=== PATIENT | female | born 1950 | race American Indian/Alaskan Native ===

== ENCOUNTER 2018-08-22 14:06 | Emergency (ER) | payer MEDICAID, MEDICARE ==
[2018-08-22 14:15] VITALS: BP 132/76; PULSE 94; RESP 18; TEMP 98.8; O2SAT 100
[2018-08-22] MEDS ORDERED: Lidocaine 5% Patch TD STA (14:33)
[2018-08-22] MEDS ORDERED: Lidocaine 5% Patch TD ONE (14:39)
--- NOTE | 2018-08-22 15:01 | C.PDOC ---
Chief Complaint (Nursing): Lower Extremity Problem/Injury Past Medical History Vital Signs: Last Vital Signs Temp 98.8 F 08/22/18 14:13 Pulse 94 H 08/22/18 14:13 Resp 18 08/22/18 14:13 BP 132/76 08/22/18 14:13 Pulse Ox 100 08/22/18 14:13 Primary Care Provider: Bibi Mathis - Medical History PMH: Arthritis - Social History Hx Alcohol Use: No Hx Substance Use: No ED Course And Treatment O2 Sat by Pulse Oximetry: 100 Disposition Counseled Patient/Family Regarding: Diagnosis, Need For Followup, Rx Given - Disposition Referrals: Orthopedic Clinic at [Outside] Emi Finley MD [Staff Provider] - Blue Larsen MD [Staff Provider] - Disposition: HOME/ ROUTINE Disposition Time: 14:59 Condition: STABLE Additional Instructions: Continue Naproxen as needed for pain Lidoderm as needed for pain Follow up with ORTHO to discuss surgery Return to ED if symptoms worsen Prescriptions: Naproxen [Naprosyn] 500 mg PO BID #30 tablet Instructions: Osteoarthritis (DC) - Clinical Impression Clinical Impression: Right knee pain, Osteoarthritis
--- NOTE | 2018-08-22 15:03 | C.PDOC ---
History Of Present Illness 68 y/o female, with history of osteoarthritis, presents to ED complaining of right knee pain. States that the pain has been getting worse for the past few days. Patient is currently on oxycodone for pain and was told in the past that she would need surgery. Patient is here requesting knee brace. She denies recent trauma, radiation of pain, numbness or tingling. Chief Complaint (Nursing): Lower Extremity Problem/Injury History Per: Patient History/Exam Limitations: no limitations Onset/Duration Of Symptoms: Days Current Symptoms Are (Timing): Still Present Past Medical History Reviewed: Historical Data, Nursing Documentation, Vital Signs Vital Signs: Last Vital Signs Temp 98.8 F 08/22/18 14:13 Pulse 94 H 08/22/18 14:13 Resp 18 08/22/18 14:13 BP 132/76 08/22/18 14:13 Pulse Ox 100 08/22/18 14:13 Primary Care Provider: Bibi Mathis Medical History PMH: Arthritis Family History: States: No Known Family Hx - Social History Hx Alcohol Use: No Hx Substance Use: No Review Of Systems Constitutional: Negative for: Fever, Chills Cardiovascular: Negative for: Chest Pain Respiratory: Negative for: Shortness of Breath Musculoskeletal: Positive for: Other (right knee pain). Negative for: Back Pain Skin: Negative for: Rash, Bruising Neurological: Negative for: Weakness, Numbness, Headache, Dizziness Physical Exam - Physical Exam Appears: Non-toxic, No Acute Distress Skin: Normal Color, Warm, Dry Head: Atraumatic, Normacephalic Eye(s): bilateral: Normal Inspection Oral Mucosa: Moist Neck: Normal ROM, Supple Chest: Symmetrical Cardiovascular: Rhythm Regular Respiratory: Normal Breath Sounds, No Wheezing Gastrointestinal/Abdominal: Soft, No Tenderness Extremity: Normal ROM (Full ROM of the knee joint), Tenderness (slight tenderness to palpation of the knee joint), No Pedal Edema, No Calf Tenderness, Capillary Refill (less than 2 seconds), Other (no edema, ecchymosis, or erythema) Extremity: Bilateral: Atraumatic, Normal Color And Temperature Pulses: Left Dorsalis Pedis: Normal, Right Dorsalis Pedis: Normal Neurological/Psych: Oriented x3, Normal Speech, Normal Cognition, Normal Motor, Normal Sensation Gait: With Assistance (cane) ED Course And Treatment O2 Sat by Pulse Oximetry: 100 (RA) Pulse Ox Interpretation: Normal Medical Decision Making Medical Decision Making: Plan: --Lidoderm patch placed on knee and knee brace applied --patient stable for discharge Disposition Counseled Patient/Family Regarding: Diagnosis, Need For Followup, Rx Given - Disposition Referrals: Orthopedic Clinic at [Outside] Emi Finley MD [Staff Provider] - Blue Larsen MD [Staff Provider] - Disposition: HOME/ ROUTINE Disposition Time: 15:00 Condition: STABLE Additional Instructions: Continue Naproxen as needed for pain Lidoderm as needed for pain Follow up with ORTHO to discuss surgery Return to ED if symptoms worsen Prescriptions: Naproxen [Naprosyn] 500 mg PO BID #30 tablet Instructions: Osteoarthritis (DC) Forms: [employer] (Yakut) - Clinical Impression Clinical Impression: Right knee pain, Osteoarthritis - PA / SPECIAL EDUCATION PROFESSIONAL / Resident Statement MD/DO has reviewed & agrees with the documentation as recorded. - Scribe Statement The provider has reviewed the documentation as recorded by the Slavaibravinder Jean All medical record entries made by the Slavaibravinder were at my direction and personally dictated by me. I have reviewed the chart and agree that the record accurately reflects my personal performance of the history, physical exam, medical decision making, and the department course for this patient. I have also personally directed, reviewed, and agree with the discharge instructions and disposition.
== END 2018-08-22 15:05 | disposition home or self-care (01) ==
LOC: C.ER 14:06
DX: M25.561 Pain in right knee (principal); M19.90 Unspecified osteoarthritis, unspecified site